=== PATIENT | female | born 1980 | race Caucasian/White ===

== ENCOUNTER 2024-05-03 08:55 | Emergency (ER) | payer OTHER ==
[~2024-05-03] VITALS: Ht 157.5 cm; Wt 75.0 kg
[~2024-05-03 08:55] MED LIST: IBUP-2077 PO
[2024-05-03] MEDS ORDERED: METF-446 PO (09:08)
[2024-05-03] MEDS ORDERED: FERR325T23 PO (09:08)
[2024-05-03] MEDS ORDERED: ATOR20TA65 PO (09:08)
[2024-05-03] MEDS ORDERED: LISI20TA24 PO (09:08)
[2024-05-03] MEDS ORDERED: ETHI1TAB30 PO (09:08)
[2024-05-03] MEDS: SODIUM CHLORIDE 0.9% 1,000 ML IV ONE (09:32)
[2024-05-03] MEDS: ONDANSETRON HCL 4 MG/2 ML VIAL IVP ONE ×2 (09:33→10:09)
[2024-05-03 09:36] LABS: BASOPHILS % (AUTO) 0.3 % (0.0-2.0); EOSINOPHILS % (AUTO) 0.3 % (1.0-6.0); HEMATOCRIT 39.4 % (36-46); HEMOGLOBIN 12.7 g/dL (12.0-16.0); LYMPHOCYTES # (AUTO) 3.5 K/uL (1.0-4.8); LYMPHOCYTES % (AUTO) 18.8 % (22.0-44.0); MEAN CORPUSCULAR HEMOGLOBIN 24.4 pg (26.0-34.0); MEAN CORPUSCULAR HGB CONC 32.3 G/dL (31.0-37.0); MEAN CORPUSCULAR VOLUME 75 fL (80-100); MONOCYTES # (AUTO) 0.6 K/uL (0.1-1.0); NEUTROPHILS # (AUTO) 14.4 K/uL (1.8-7.7); NEUTROPHILS % (AUTO) 77.6 % (40.0-70.0); PLATELET COUNT (AUTO) 435 K/uL (150-450); RED BLOOD CELL COUNT(AUTO) 5.22 MIL/uL (4.00-5.20); RED CELL DISTRIBUTION WIDTH 21.3 % (11.5-14.5); WHITE BLOOD COUNT (AUTO) 18.6 K/uL (4.5-11.0)
[2024-05-03 09:38] LABS: RBC MORPHOLOGY COMMENT ABNORMAL RBC MORPH
[2024-05-03 09:54] LABS: ANION GAP 15 mmol/L (8-16); CALCIUM, TOTAL 9.8 mg/dL (8.8-10.5); CARBON DIOXIDE 19 mmol/L (22-29); CHLORIDE 99 mmol/L (98-107); CREATININE 0.85 mg/dL (0.60-1.30); GLOMERULAR FILTR. RATE CALC > 60 mL/min (>60); GLUCOSE,RANDOM 229 mg/dL (70-110); LIPASE 63 U/L (16-77); POTASSIUM 4.5 mmol/L (3.5-5.1); SODIUM SERUM 133 mmol/L (136-145); UREA NITROGEN, BLOOD 13 mg/dL (7-18)
[2024-05-03] MEDS: MORPHINE SULFATE 4 MG/ML SYRINGE IVP ONE ×2 (10:08→12:42)
[2024-05-03 10:21] LABS: GLUCOMETER DEV NAME(LOC) ERT.5; GLUCOSE,POINT OF CARE 243 MG/DL (70-110)
[2024-05-03] MEDS ORDERED: FAMO20 PO (12:54)
[2024-05-03] MEDS ORDERED: HYDR-4808 PO (12:54)
[2024-05-03 14:03] LABS: ALANINE AMINOTRANSFERASE 23 U/L (12-78); ALBUMIN 4.1 g/dL (3.4-5.0); ALKALINE PHOSPHATASE 73 U/L (46-116); ASPARTATE AMINOTRANSFERASE 25 U/L (15-37); BILIRUBIN,TOTAL 0.4 mg/dL (0.1-1.0); TOTAL PROTEIN, SERUM 9.2 g/dL (6.4-8.2)
[2024-05-03 14:18] VITALS: BP 130/76; PULSE 99; RESP 16; TEMP 98.1
[2024-05-03] MEDS: CefTRIAXone 1 GM/DEXTROSE 50 ML IV ONE (14:43)
== END 2024-05-03 15:04 | disposition home or self-care (01) ==
LOC: EMS 08:55
DX: R10.13 Epigastric pain (principal); R11.2 Nausea with vomiting, unspecified; R19.7 Diarrhea, unspecified; E11.9 Type 2 diabetes mellitus without complications; I10 Essential (primary) hypertension
CPT/HCPCS: 99285; 74176; 96365; 76700; 96375; 96361; 80048; 80076; 82962; 83690; 85025; 36415; 96376; J0696; J2270; J2405; J7030